=== PATIENT | female | born 1995 | race African-American/Black ===

== ENCOUNTER 2018-09-23 20:54 | Emergency (ER) | payer OTHER ==
[~2018-09-23] VITALS: Ht 162.6 cm; Wt 90.9 kg
[2018-09-23] MEDS ORDERED: ALBU8HFA IH (21:20)
[2018-09-23] MEDS ORDERED: IPRATROPIUM BROMIDE 0.5 MG/2.5 ML NEB SOLUTION NEB ONE (21:45)
[2018-09-23] MEDS ORDERED: ALBUTEROL SULFATE 2.5 MG/0.5 ML NEB SOLUTION NEB ONE (21:45)
[2018-09-23 22:10] VITALS: BP 140/89
== END 2018-09-23 22:41 | disposition home or self-care (01) ==
LOC: EMS 20:57
DX: J45.909 Unspecified asthma, uncomplicated (principal); B34.9 Viral infection, unspecified
CPT/HCPCS: 94060; 94640